=== PATIENT | female | born 1985 | race Caucasian/White ===

== ENCOUNTER 2018-08-14 01:16 | Inpatient (IN) | payer OTHER ==
[2018-08-14] MEDS ORDERED: NACL 0.9% 3 ML SYG IV (03:30)
[2018-08-14] MEDS: DEXTROSE 5%-0.45% NACL 1,000 ML IV (03:32)
[2018-08-14] MEDS: ACETAMINOPHEN 325 MG TAB PO ×3 (03:38→20:36)
[2018-08-14] MEDS: PANTOPRAZOLE 40 MG INJ IV (06:23)
[2018-08-14 06:32] LABS: ADD MAN DIFF? NO
[2018-08-14 06:44] LABS: WHITE BLOOD COUNT 12.1 10^3/ul (4.8-10.8)
[2018-08-14 06:44] LABS: BASOPHILS % 0.3 % (0.0-2.0); EOSINOPHILS % 0.2 % (0.0-7.0); HEMATOCRIT 28.1 % (37.0-47.0); HEMOGLOBIN 9.6 g/dl (12.0-16.0); LYMPHOCYTES # 1.5 10^3/ul (0.8-2.9); LYMPHOCYTES % 12.7 % (15.0-51.0); MEAN CORPUSCULAR HEMOGLOBIN 29.8 pg (29.0-33.0); MEAN CORPUSCULAR HGB CONC 34.2 g/dl (32.0-37.0); MEAN CORPUSCULAR VOLUME 87.3 fl (82.0-101.0); MEAN PLATELET VOLUME 9.7 fl (7.4-10.4); MONOCYTES % 8.3 % (0.0-11.0); NEUTROPHIL # 9.4 10^3/ul (1.6-7.5); NEUTROPHILS % 77.7 % (39.0-77.0); PLATELET COUNT 273 10^3/UL (140-415); RED BLOOD COUNT 3.22 10^6/ul (4.20-5.40); RED CELL DISTRIBUTION WIDTH 13.2 % (11.5-14.5)
[2018-08-14 07:21] LABS: ALBUMIN/GLOBULIN RATIO 0.78; ANION GAP 8 (5-13); BILIRUBIN,TOTAL 0.3 mg/dl (0.2-1.3); Estimated GFR > 60 mL/min (>60)
[2018-08-14 07:28] LABS: ALANINE AMINOTRANSFERASE 16 IU/L (13-69); ALBUMIN 2.5 g/dl (3.3-4.9); ALKALINE PHOSPHATASE 116 IU/L (42-121); ASPARTATE AMINO TRANSFERASE 15 IU/L (15-46); BILIRUBIN,INDIRECT 0.3 mg/dl (0-1.1); BLOOD UREA NITROGEN 6 mg/dl (7-20); CALCIUM 8.1 mg/dl (8.4-10.2); CARBON DIOXIDE 24 mmol/L (21-31); CHLORIDE 107 mmol/L (97-110); CREATININE 0.82 mg/dl (0.44-1.00); GLUCOSE 106 mg/dl (70-220); MAGNESIUM 2.1 mg/dl (1.7-2.5); SODIUM 139 mmol/L (135-144); TOTAL PROTEIN 5.7 g/dl (6.1-8.1)
[2018-08-14 07:30] LABS: POTASSIUM 2.8 mmol/L (3.5-5.1)
[2018-08-14] MEDS: SOD CHLORIDE 0.9% 1,000 ML IV (08:09)
[2018-08-14] MEDS: POTASSIUM CHLORIDE 100 ML IVPB (08:10)
[2018-08-14] MEDS ORDERED: POTASSIUM CHLORIDE 10 MEQ in DEXTROSE 5%-0.45% NACL 1,000 ML IV (09:16)
[2018-08-14] MEDS: POTASSIUM CHLORIDE (SR) 20 MEQ TAB PO (09:34)
[2018-08-14] MEDS: CEFTRIAXONE 1 GM/50 ML (PMX) 50 ML IVPB (09:34)
[2018-08-14] MEDS: D5W-0.45 NACL + KCL 10 MEQ 1,000 ML IV ×2 (10:21→23:17)
[2018-08-14 10:59] LABS: ADD UMIC YES; UR ASCORBIC ACID NEGATIVE (NEGATIVE); UR BACTERIA FEW /HPF (NONE SEEN); UR BILIRUBIN (Dip) NEGATIVE (NEGATIVE); UR BLOOD (Dip) 3+ mg/dL (NEGATIVE); UR CLARITY CLEAR (CLEAR); UR COLOR YELLOW (YELLOW); UR GLUCOSE (Dip) NEGATIVE (NEGATIVE); UR KETONES (Dip) NEGATIVE (NEGATIVE); UR LEUKOCYTE ESTERASE (Dip) 1+ Leu/ul (NEGATIVE); UR NITRITE (Dip) NEGATIVE (NEGATIVE); UR RBC 5 /HPF (0-5); UR SPECIFIC GRAVITY (Dip) 1.004 (1.003-1.030); UR TOTAL PROTEIN (Dip) NEGATIVE (NEGATIVE); UR UROBILINOGEN (Dip) NEGATIVE (NEGATIVE); UR WBC 48 /HPF (0-5)
[2018-08-14] MEDS: PROPOFOL 40 ML (11:26)
[2018-08-14] MEDS: LIDOCAINE 2% (SDV) 5 ML INJ (11:26)
[2018-08-14] MEDS ORDERED: PROPOFOL 200 MG INJ (11:36)
[2018-08-14] MEDS ORDERED: MIDAZOLAM 1 MG/ML 2 ML INJ IV (12:00)
[2018-08-14] MEDS ORDERED: hydrALAzine 20 MG INJ IV (12:00)
[2018-08-14] MEDS ORDERED: ONDANSETRON 4 MG INJ IV (12:00)
[2018-08-14] MEDS ORDERED: MEPERIDINE 25 MG INJ IV (12:00)
[2018-08-14] MEDS ORDERED: LABETALOL HCL 20MG INJ IV (12:00)
[2018-08-14] MEDS ORDERED: DIPHENHYDRAMINE 50 MG INJ IV (12:00)
[2018-08-14] MEDS ORDERED: EPHEDrine 25 MG/5 ML SYG IV (12:00)
[2018-08-14] MEDS ORDERED: FENTAnyl 50 MCG/ML VIAL IV ×2 (12:00)
[2018-08-14] MEDS: morphine 2 MG INJ IV ×3 (12:18→22:49)
[2018-08-14] MEDS: METOCLOPRAMIDE 10 MG INJ IV (12:19)
[2018-08-14] MEDS: SUCRALFATE (100 MG/ML) 10ML CUP PO ×6 (13:00→20:37)
[2018-08-14] MEDS: PANTOPRAZOLE (EC) 40 MG TAB PO (17:31)
[2018-08-14] MEDS ORDERED: PANTOPRAZOLE 40 MG INJ IV (18:00)
[2018-08-15] MEDS: PANTOPRAZOLE (EC) 40 MG TAB PO ×2 (06:26→17:52)
[2018-08-15 06:34] LABS: WHITE BLOOD COUNT 6.9 10^3/ul (4.8-10.8)
[2018-08-15 06:34] LABS: HEMATOCRIT 27.2 % (37.0-47.0); HEMOGLOBIN 9.1 g/dl (12.0-16.0); MEAN CORPUSCULAR HEMOGLOBIN 29.4 pg (29.0-33.0); MEAN CORPUSCULAR HGB CONC 33.5 g/dl (32.0-37.0); MEAN PLATELET VOLUME 9.4 fl (7.4-10.4); PLATELET COUNT 276 10^3/UL (140-415); RED BLOOD COUNT 3.09 10^6/ul (4.20-5.40); RED CELL DISTRIBUTION WIDTH 13.2 % (11.5-14.5)
[2018-08-15] MEDS: ACETAMINOPHEN 325 MG TAB PO ×2 (06:45→15:07)
[2018-08-15 06:50] LABS: POSITIVE DIFF @See below
[2018-08-15 06:51] LABS: ADD MAN DIFF? YES
[2018-08-15 06:59] LABS: ANION GAP 7 (5-13); BLOOD UREA NITROGEN 4 mg/dl (7-20); CALCIUM 7.9 mg/dl (8.4-10.2); CARBON DIOXIDE 25 mmol/L (21-31); CHLORIDE 110 mmol/L (97-110); CREATININE 0.74 mg/dl (0.44-1.00); Estimated GFR > 60 mL/min (>60); GLUCOSE 99 mg/dl (70-220); MAGNESIUM 2.3 mg/dl (1.7-2.5); PHOSPHORUS 3.4 mg/dl (2.5-4.9); POTASSIUM 3.7 mmol/L (3.5-5.1); SODIUM 142 mmol/L (135-144)
[2018-08-15 08:07] LABS: ANISOCYTOSIS 1+ (0-0); BAND NEUTROPHILS #M 0.5 10^3/ul (0.0-0.6); BAND NEUTROPHILS % (M) 8 % (0-4); BASOPHILS % (M) 1 % (0-2); EOSINOPHILS % (M) 1 % (0-7); LYMPHOCYTES #M 1.5 10^3/ul (0.8-2.9); LYMPHOCYTES % (M) 23 % (15-51); METAMYELOCYTES %M 1 % (0-0); MONOCYTE #M 0.3 10^3/ul (0.3-0.9); MONOCYTES % (M) 5 % (0-11); MYELOCYTES % (M) 1 % (0-0); PLATELET ESTIMATE NORMAL; POIKILOCYTOSIS 1+ (0-0); POLYCHROMASIA 3+ (0-0); REACTIVE LYMPHOCYTES #M 0.1 10^3/ul (0.0-0.0); REACTIVE LYMPHOCYTES% (M) 2 % (0-0); SEGMENTED NEUTROPHILS (M) % 58 % (39-77); SMUDGE%M 4 % (0-0)
[2018-08-15] MEDS: SUCRALFATE (100 MG/ML) 10ML CUP PO ×5 (08:23→20:19)
[2018-08-15] MEDS: CEFTRIAXONE 1 GM/50 ML (PMX) 50 ML IVPB (08:23)
[2018-08-15] MEDS: ONDANSETRON 4 MG INJ IV (12:54)
[2018-08-15 14:26] LABS: OCCULT BLOOD STOOL POSITIVE (NEGATIVE)
[2018-08-15] MEDS: morphine 2 MG INJ IV ×2 (15:33→20:19)
[2018-08-16] MEDS: morphine 2 MG INJ IV (00:53)
[2018-08-16] MEDS: ACETAMINOPHEN 325 MG TAB PO ×3 (03:29→19:51)
[2018-08-16] MEDS: PANTOPRAZOLE (EC) 40 MG TAB PO ×2 (07:13→17:42)
[2018-08-16] MEDS: CEFTRIAXONE 1 GM/50 ML (PMX) 50 ML IVPB (08:33)
[2018-08-16] MEDS: SUCRALFATE (100 MG/ML) 10ML CUP PO ×4 (08:33→23:12)
[2018-08-16 09:41] LABS: ADD MAN DIFF? NO
[2018-08-16 09:43] LABS: BASOPHILS % 0.4 % (0.0-2.0); EOSINOPHILS # 0.1 10^3/ul (0.0-0.5); EOSINOPHILS % 1.1 % (0.0-7.0); HEMATOCRIT 29.4 % (37.0-47.0); HEMOGLOBIN 9.7 g/dl (12.0-16.0); LYMPHOCYTES # 1.9 10^3/ul (0.8-2.9); LYMPHOCYTES % 26.5 % (15.0-51.0); MEAN CORPUSCULAR HEMOGLOBIN 29.6 pg (29.0-33.0); MEAN CORPUSCULAR VOLUME 89.6 fl (82.0-101.0); MONOCYTE # 0.4 10^3/ul (0.3-0.9); MONOCYTES % 5.6 % (0.0-11.0); NEUTROPHIL # 4.7 10^3/ul (1.6-7.5); NEUTROPHILS % 65.3 % (39.0-77.0); PLATELET COUNT 367 10^3/UL (140-415); RED BLOOD COUNT 3.28 10^6/ul (4.20-5.40); RED CELL DISTRIBUTION WIDTH 13.1 % (11.5-14.5)
[2018-08-16 09:43] LABS: WHITE BLOOD COUNT 7.1 10^3/ul (4.8-10.8)
[2018-08-16 10:05] LABS: ANION GAP 7 (5-13); BLOOD UREA NITROGEN 10 mg/dl (7-20); CALCIUM 8.3 mg/dl (8.4-10.2); CARBON DIOXIDE 26 mmol/L (21-31); CHLORIDE 107 mmol/L (97-110); CREATININE 0.83 mg/dl (0.44-1.00); Estimated GFR > 60 mL/min (>60); GLUCOSE 92 mg/dl (70-220); MAGNESIUM 2.2 mg/dl (1.7-2.5); PHOSPHORUS 4.6 mg/dl (2.5-4.9); POTASSIUM 3.8 mmol/L (3.5-5.1); SODIUM 140 mmol/L (135-144)
[2018-08-16 10:06] LABS: IRON 34 ug/dl (35-150)
[2018-08-16 10:17] LABS: % IRON SATURATION 14 % SAT (22-52); TOTAL IRON BINDING CAPACITY 239 ug/dl (241-421)
[2018-08-17 05:29] LABS: ADD MAN DIFF? NO
[2018-08-17 05:33] LABS: BASOPHILS % 0.6 % (0.0-2.0); EOSINOPHILS # 0.1 10^3/ul (0.0-0.5); EOSINOPHILS % 1.7 % (0.0-7.0); HEMATOCRIT 33.1 % (37.0-47.0); LYMPHOCYTES # 1.8 10^3/ul (0.8-2.9); LYMPHOCYTES % 27.6 % (15.0-51.0); MEAN CORPUSCULAR HEMOGLOBIN 29.3 pg (29.0-33.0); MEAN CORPUSCULAR HGB CONC 33.2 g/dl (32.0-37.0); MEAN PLATELET VOLUME 8.9 fl (7.4-10.4); MONOCYTE # 0.4 10^3/ul (0.3-0.9); MONOCYTES % 5.4 % (0.0-11.0); NEUTROPHILS % 62.7 % (39.0-77.0); PLATELET COUNT 460 10^3/UL (140-415); RED BLOOD COUNT 3.76 10^6/ul (4.20-5.40); RED CELL DISTRIBUTION WIDTH 12.7 % (11.5-14.5)
[2018-08-17 05:33] LABS: WHITE BLOOD COUNT 6.5 10^3/ul (4.8-10.8)
[2018-08-17 06:12] LABS: ALBUMIN 3.2 g/dl (3.3-4.9); ANION GAP 7 (5-13); BLOOD UREA NITROGEN 12 mg/dl (7-20); CALCIUM 8.9 mg/dl (8.4-10.2); CARBON DIOXIDE 28 mmol/L (21-31); CHLORIDE 106 mmol/L (97-110); GLUCOSE 98 mg/dl (70-220); MAGNESIUM 2.3 mg/dl (1.7-2.5); PHOSPHORUS 4.3 mg/dl (2.5-4.9); POTASSIUM 3.8 mmol/L (3.5-5.1); SODIUM 141 mmol/L (135-144)
[2018-08-17] MEDS: PANTOPRAZOLE (EC) 40 MG TAB PO ×2 (08:35→17:36)
[2018-08-17] MEDS: FERROUS SULFATE (EC) 325 MG TAB PO (08:35)
[2018-08-17] MEDS: SUCRALFATE (100 MG/ML) 10ML CUP PO ×4 (08:35→21:14)
[2018-08-17] MEDS: CEFTRIAXONE 1 GM/50 ML (PMX) 50 ML IVPB (08:35)
[2018-08-17] MEDS: ACETAMINOPHEN 325 MG TAB PO (17:39)
[2018-08-17] MEDS: SALINE 0.65% 45 ML NAS SPRAY NASAL (21:35)
[2018-08-18] MEDS: PANTOPRAZOLE (EC) 40 MG TAB PO (06:53)
[2018-08-18] MEDS: SALINE 0.65% 45 ML NAS SPRAY NASAL (09:00)
[2018-08-18] MEDS: SUCRALFATE (100 MG/ML) 10ML CUP PO ×2 (09:06→12:54)
[2018-08-18] MEDS: CEFTRIAXONE 1 GM/50 ML (PMX) 50 ML IVPB (09:06)
[2018-08-18] MEDS: FERROUS SULFATE (EC) 325 MG TAB PO (09:06)
[2018-08-18] MEDS: CEPHALEXIN 500 MG CAP PO (12:31)
== END 2018-08-18 13:15 | disposition home or self-care (01) | DRG 384 ==
LOC: 6WM 01:16 → MS1 08-15 14:50
PROC: 0DB68ZZ Excision of Stomach, Via Natural or Artificial Opening Endoscopic (ICD-10-PCS; principal; 2018-08-14 10:30)
DX: K25.9 Gastric ulcer, unspecified as acute or chronic, without hemorrhage or perforation (principal); N39.0 Urinary tract infection, site not specified; R19.5 Other fecal abnormalities; R10.13 Epigastric pain; K27.9 Peptic ulcer, site unspecified, unspecified as acute or chronic, without hemorrhage or perforation; Z79.1 Long term (current) use of non-steroidal anti-inflammatories (NSAID); D50.9 Iron deficiency anemia, unspecified
CPT/HCPCS: 80048; 80053; 80069; 81001; 82270; 83540; 83735; 84100; 85025; 87086; 88305; 88312